=== PATIENT | male | born 1960 | race Asian ===

== ENCOUNTER 2016-07-04 14:52 | Emergency (ER) | payer MEDICAID ==
[~2016-07-04] VITALS: Ht 167.6 cm; Wt 77.1 kg
[2016-07-04 15:06] VITALS: BP 143/93; PULSE 88; RESP 16; TEMP 97.5; O2SAT 99
--- NOTE | 2016-07-04 15:26 | NUR ---
PT IN TRIAGE DR. CARTER AT BEDSIDE EXAMINING PT
[2016-07-04] MEDS ORDERED: DIPHENHYDRAMINE INJ 50 MG/ML VIAL IM ONE (15:45)
[2016-07-04] MEDS ORDERED: DEXAMETHASONE SOD PHOSPHATE 10 MG/ML VIAL IM ONE (15:45)
--- NOTE | 2016-07-04 16:09 | NUR ---
Patient to ER bed H1 to gown for evaluation. Side rails up. Report given to Javier by
--- NOTE | 2016-07-04 16:20 | NUR ---
Pt c/o bilat eye lid swelling. Saw PMD who gave eye drops and antibotic without relief. +itching, +tears that fall sometimes during the day.
--- NOTE | 2016-07-04 16:28 | NUR ---
Medicated per MD orders. Pt tolerated well. Will continue to monitor
--- NOTE | 2016-07-04 16:50 | NUR ---
Patient given written and verbal discharge instructions and verbalizes understanding. ER MD discussed with patient the results and treatment provided. Patient in stable condition. ID arm band removed. Rx of prednisone, bactrim DS, cephalexin given. Patient educated on pain management and to follow up with PMD. Pain Scale 0/10. Opportunity for questions provided and answered.
[2016-07-04 16:51] VITALS: BP 143/93; PULSE 88; RESP 16; TEMP 97.5; O2SAT 99
== END 2016-07-04 16:50 | disposition home or self-care (01) ==
LOC: SED 14:52
DX: H01.009 Unspecified blepharitis unspecified eye, unspecified eyelid (principal); I10 Essential (primary) hypertension; E11.9 Type 2 diabetes mellitus without complications
CPT/HCPCS: 96372; 99284; J1100; J1200

== ENCOUNTER 2016-07-27 18:14 | Emergency (ER) | payer MEDICAID ==
[~2016-07-27] VITALS: Ht 165.1 cm; Wt 77.1 kg
[2016-07-27 18:25] VITALS: BP 155/84; PULSE 95; RESP 20; TEMP 98.3; O2SAT 98
--- NOTE | 2016-07-27 19:40 | NUR ---
Patient to ER bed 03 to gown for evaluation. Side rails up.
--- NOTE | 2016-07-27 19:42 | NUR ---
Pt brought by self, A &O x4, pt c/o rash and itching on thights, denies pain, skin pink and warm, cap refill <3, VSS.
--- NOTE | 2016-07-27 19:48 | NUR ---
Aicha CASTILLO [employer] ATTENDANT at bedside examining patient
[2016-07-27 21:44] VITALS: BP 148/84; PULSE 95; RESP 20; TEMP 98.3; O2SAT 98
--- NOTE | 2016-07-27 21:44 | NUR ---
Patient given written and verbal discharge instructions and verbalizes understanding. ER MD discussed with patient the results and treatment provided. Patient in stable condition. ID arm band removed. Rx of Lotrimim given. Patient educated on pain management and to follow up with PMD. Pain Scale [ 0/10. Opportunity for questions provided and answered.
== END 2016-07-27 21:44 | disposition home or self-care (01) ==
LOC: SED 18:14
DX: B35.6 Tinea cruris (principal); E11.9 Type 2 diabetes mellitus without complications; I10 Essential (primary) hypertension
CPT/HCPCS: 99282